=== PATIENT | female | born 1955 | race Caucasian/White ===

== ENCOUNTER 2017-06-14 18:37 | Emergency (ER) | payer OTHER ==
[~2017-06-14] VITALS: Ht 162.6 cm; Wt 63.5 kg
[~2017-06-14 18:37] MED LIST: ALEN35 PO; BUDE32NIS; CYCL10 PO; ESCI10; FEXO180; FORTEO; GABA300 PO; HYDACE5 PO; K-Dur20 MEQ PO; Lovenox100 MG/1 M SQ; NAPR500 PO; NORT25 PO; Norco 10-325 T1 EACH PO; OXYACE5C; OXYACE5T PO; PROM25 PO; Percocet 5-3251 EACH PO; RISE35; TIZA4; TIZA4 PO; TRAM50; TREXAMET PO; TREXIMET 10-601 EACH
[2017-09-02] MEDS ORDERED: NAPR500 (13:48)
[2017-09-02] MEDS ORDERED: XARELTO10 MG (13:49)
== END 2017-06-14 20:12 | disposition home or self-care (01) ==
LOC: ER 18:37
DX: Z20.3 Contact with and (suspected) exposure to rabies (principal); Z23 Encounter for immunization; Z88.8 Allergy status to other drugs, medicaments and biological substances; I10 Essential (primary) hypertension
CPT/HCPCS: 90471; 99283

== ENCOUNTER 2017-06-17 00:19 | Day surgery (SDC) | payer OTHER ==
[2017-06-17] MEDS ORDERED: PROLIA60 MG/1 ML SC (14:24)
[2017-06-17] MEDS ORDERED: OXYC1TAB11 PO (14:25)
[2017-06-17] MEDS ORDERED: Zanaflex4 M1 PO (14:25)
[2017-09-02] MEDS ORDERED: NAPR500 (13:48)
[2017-09-02] MEDS ORDERED: XARELTO10 MG (13:49)
== END 2017-06-17 13:58 | disposition home or self-care (01) ==
LOC: ATC 00:19
DX: Z23 Encounter for immunization (principal); Z20.3 Contact with and (suspected) exposure to rabies; S61.252A Open bite of right middle finger without damage to nail, initial encounter; W55.81XA Bitten by other mammals, initial encounter
CPT/HCPCS: 90471

== ENCOUNTER 2017-09-09 08:09 | Day surgery (SDC) | payer OTHER ==
[~2017-09-09] VITALS: Ht 160 cm; Wt 67.1 kg
[~2017-09-09 08:09] MED LIST changes: +NAPR500; +OXYC1TAB11 PO; +PROLIA60 MG/1 ML SC; +XARELTO10 MG; +Zanaflex4 M1 PO
== END 2017-09-09 10:05 | disposition home or self-care (01) ==
LOC: ORSCSDS 08:09
PROVIDERS: Internal Medicine Gastroenterology
PROC: 0DBG8ZX Excision of Left Large Intestine, Via Natural or Artificial Opening Endoscopic, Diagnostic (ICD-10-PCS; principal; 2017-09-09 09:30)
DX: Z12.11 Encounter for screening for malignant neoplasm of colon (principal); K57.30 Diverticulosis of large intestine without perforation or abscess without bleeding; K64.8 Other hemorrhoids; Z86.010 Personal history of colon polyps; Z83.71 Family history of colonic polyps; J45.909 Unspecified asthma, uncomplicated; Z86.718 Personal history of other venous thrombosis and embolism; Z79.01 Long term (current) use of anticoagulants; Z79.899 Other long term (current) drug therapy
CPT/HCPCS: 88305; J7120

== ENCOUNTER 2018-09-13 16:39 | Observation (INO) | payer OTHER ==
[~2018-09-13] VITALS: Ht 160 cm; Wt 65.8 kg
[~2018-09-13 16:39] MED LIST changes: -OXYC1TAB11 PO
[2018-09-13 17:07] LABS: BASOPHILS ABSOLUTE AUTO 0.03 K/mm3 (0.00-0.23); BASOPHILS PERCENT AUTO 0 % (0-2); EOSINOPHILS PERCENT AUTO 1 % (0-6); Hematocrit 41.9 % (33.0-51.0); IMMATURE GRAN ABSOLUTE AUTO 0.02 K/mm3 (0.00-0.10); IMMATURE GRAN PERCENT AUTO 0 % (0-1); LYMPHOCYTES ABSOLUTE AUTO 2.13 K/mm3 (0.84-5.20); LYMPHOCYTES PERCENT AUTO 20 % (21-46); MONOCYTES ABSOLUTE AUTO 0.66 K/mm3 (0.16-1.47); MONOCYTES PERCENT AUTO 6 % (4-13); Mean Corpuscular HGB 30.6 pg (26.0-34.0); Mean Corpuscular HGB Conc 33.4 g/dL (31.5-36.5); Mean Corpuscular Volume 92 fL (80-100); Mean Platelet Volume 11.1 fL (9.1-12.4); NEUTROPHILS ABSOLUTE AUTO 7.68 K/mm3 (1.96-9.15); NEUTROPHILS PERCENT AUTO 72 % (41-73); Platelet Count 261 K/mm3 (150-400); RDW Coefficient Variation 12.4 % (11.7-14.2); RDW Standard Deviation 41.4 fL (35.1-46.3); Red Blood Cell Count 4.57 M/mm3 (3.80-5.20); White Blood Cell Count 10.62 K/mm3 (4.00-11.30)
[2018-09-13 17:32] LABS: Alanine Aminotransfer (ALT/SGP 32 U/L (12-78); Albumin, Blood 3.6 g/dL (3.4-5.0); Albumin/Globulin Ratio 0.9 (0.8-1.8); Alk Phos 175 U/L (50-136); Anion Gap 9 mmol/L (6-16); Aspartate Aminotrans (AST/SGOT 22 U/L (12-37); Bilirubin, Total 0.7 mg/dL (0.1-1.0); Blood Urea Nitrogen 21 mg/dL (8-24); Bun/Creatinine Ratio 30.4 (12.0-20.0); CO2, Blood 23 mmol/L (21-32); Calcium, Blood 9.1 mg/dL (8.5-10.1); Chloride, Blood 107 mmol/L (98-108); Creatinine, Blood 0.69 mg/dL (0.40-1.00); Globulin, Blood 3.8 g/dL (2.2-4.0); Glomerular Filtration Rate >60 (60-); Glucose, Blood 110 mg/dL (70-99); Potassium, Blood 3.8 mmol/L (3.5-5.5); Sodium, Blood 139 mmol/L (136-145); Total Protein, Blood 7.4 g/dL (6.4-8.2)
[2018-09-13] MEDS ORDERED: LOSA50 PO (17:46)
[2018-09-13] MEDS ORDERED: Norvasc2.5 MG PO (17:46)
[2018-09-13 18:28] LABS: Source, Urine Clean Catch
[2018-09-13 18:37] LABS: Bilirubin, Urine Neg (Neg); Blood, Urine 1+ (Neg); Glucose Qualitative, Urine Neg (Neg); Ketones, Urine 2+ (Neg); Leukocyte Esterase, Urine Neg (Neg); Nitrite, Urine Neg (Neg); Protein, Urine Neg (Neg); Specific Gravity, Urine 1.025 (1.003-1.022); Urobilinogen, Urine NORM (Normal)
[2018-09-13 18:38] LABS: Appearance, Urine Clear (Clear); Color, Urine Yellow (P-Yellow)
[2018-09-13 18:49] LABS: Bacteria Few /hpf; Red Blood Cells, Urine 0-2 /hpf (0-2); Squamous Epithelial Cells Not Seen /hpf (Few); Uric Acid Crystals Many /hpf; White Blood Cells, Urine 0-2 /hpf (0-5)
[2018-09-13 19:49] LABS: Adenovirus F 40/41 Not Detected (NOT DETECT); Astrovirus Not Detected (NOT DETECT); Campylobacter Sp Not Detected (NOT DETECT); Cryptosporidium Not Detected (NOT DETECT); Cyclospora Cayetanensis Not Detected (NOT DETECT); E. Coli O157 Not Detected (NOT DETECT); Entamoeba Histolytica Not Detected (NOT DETECT); Enteroaggregative E. coli-EAEC Not Detected (NOT DETECT); Enteropathogenic E. coli-EPEC Not Detected (NOT DETECT); Enterotoxigenic E. coli-ETEC Not Detected (NOT DETECT); Giardia Lamblia Not Detected (NOT DETECT); Norovirus GI/GII Not Detected (NOT DETECT); Plesiomonas Shigelloides Not Detected (NOT DETECT); Rotavirus A Not Detected (NOT DETECT); Salmonella Sp Not Detected (NOT DETECT); Sapovirus Not Detected (NOT DETECT); Shiga Toxin-prod E. coli-STEC Not Detected (NOT DETECT); Shigella/Enteroin E. coli-EIEC Not Detected (NOT DETECT); Vibrio Cholerae Not Detected (NOT DETECT); Vibrio Sp Not Detected (NOT DETECT); Yersinia Enterocolitica Not Detected (NOT DETECT)
[2018-09-13] MEDS ORDERED: XARELTO10 MG PO (20:17)
[2018-09-13] MEDS ORDERED: Treximet 85-501 EACH (22:17)
--- NOTE | 2018-09-14 07:27 | NUR ---
PT NEW ADMIT THIS SHIFT FOR C-DIFF. PT VSS T/O NIGHT. PAIN MGD PER EMAR W/REP RELIEF. PT DOES REP MILD NAUSEA, DECLINED NEED FOR NAUSEA MEDS. PT HAD 2 BM, BLOODY DIARRHEA. PT REP LESS DIZZINESS THIS AM. PT UP INDEP IN RROM, IS USING CALL LIGHT FOR ASSISTANCE, REP GIVEN TO DAY RN.
[2018-09-14] MEDS ORDERED: Florastor250 MG PO (12:01)
[2018-09-14] MEDS ORDERED: ONDA4ODT MM (12:02)
[2018-09-14] MEDS ORDERED: Anti-Diarrheal2 MG PO (12:02)
--- NOTE | 2018-09-14 12:33 | NUR ---
DISCHARGE PT SET UP F/U APPOINTMENT WITH DR SUERO FOR TODAY AT 1. UNDERSTANDS REASONS TO RETURN TO ED. SCRIPTS CALLED TO PHARMACY OF CHOICE, [facility].
== END 2018-09-14 12:14 | disposition home or self-care (01) ==
LOC: ER 16:39 → SURS 16:40 → ER 21:03 → SURS 21:03
PROVIDERS: Emergency Medicine; ADMIT Family Medicine
DX: A04.72 Enterocolitis due to Clostridium difficile, not specified as recurrent (principal); I12.9 Hypertensive chronic kidney disease with stage 1 through stage 4 chronic kidney disease, or unspecified chronic kidney disease; N18.3 Chronic kidney disease, stage 3 (moderate); Z88.8 Allergy status to other drugs, medicaments and biological substances; Z79.899 Other long term (current) drug therapy
CPT/HCPCS: 36415; 46600; 74176; 80053; 81001; 85025; 86850; 86900; 86901; 87324; 87507; 93005; 93010; 96361-59; 96374-59; 96376-59; 99285-25; J1170; J2405; J3010; J7030

== ENCOUNTER 2018-09-15 02:08 | Emergency (ER) | payer OTHER ==
[~2018-09-15] VITALS: Ht 160 cm; Wt 65.8 kg
[~2018-09-15 02:08] MED LIST changes: +Anti-Diarrheal2 MG PO; +Florastor250 MG PO; +LOSA50 PO; +Norvasc2.5 MG PO; +ONDA4ODT MM; +Treximet 85-501 EACH; +XARELTO10 MG PO
[2018-09-15 02:46] LABS: BASOPHILS ABSOLUTE AUTO 0.03 K/mm3 (0.00-0.23); BASOPHILS PERCENT AUTO 0 % (0-2); EOSINOPHILS ABSOLUTE AUTO 0.21 K/mm3 (0.00-0.68); EOSINOPHILS PERCENT AUTO 3 % (0-6); Hematocrit 34.8 % (33.0-51.0); Hemoglobin 11.5 g/dL (11.5-16.0); IMMATURE GRAN ABSOLUTE AUTO 0.03 K/mm3 (0.00-0.10); IMMATURE GRAN PERCENT AUTO 0 % (0-1); LYMPHOCYTES ABSOLUTE AUTO 1.99 K/mm3 (0.84-5.20); LYMPHOCYTES PERCENT AUTO 25 % (21-46); MONOCYTES PERCENT AUTO 8 % (4-13); Mean Corpuscular Volume 94 fL (80-100); NEUTROPHILS ABSOLUTE AUTO 5.09 K/mm3 (1.96-9.15); NEUTROPHILS PERCENT AUTO 64 % (41-73); Platelet Count 209 K/mm3 (150-400); RDW Coefficient Variation 12.3 % (11.7-14.2); RDW Standard Deviation 42.1 fL (35.1-46.3); Red Blood Cell Count 3.71 M/mm3 (3.80-5.20); White Blood Cell Count 7.95 K/mm3 (4.00-11.30)
[2018-09-15 03:04] LABS: Alanine Aminotransfer (ALT/SGP 24 U/L (12-78); Albumin, Blood 2.9 g/dL (3.4-5.0); Alk Phos 125 U/L (50-136); Anion Gap 6 mmol/L (6-16); Aspartate Aminotrans (AST/SGOT 16 U/L (12-37); Bilirubin, Total 0.3 mg/dL (0.1-1.0); Blood Urea Nitrogen 13 mg/dL (8-24); Bun/Creatinine Ratio 16.5 (12.0-20.0); CO2, Blood 25 mmol/L (21-32); Chloride, Blood 108 mmol/L (98-108); Creatinine, Blood 0.79 mg/dL (0.40-1.00); Globulin, Blood 2.8 g/dL (2.2-4.0); Glomerular Filtration Rate >60 (60-); Glucose, Blood 123 mg/dL (70-99); Potassium, Blood 3.7 mmol/L (3.5-5.5); Sodium, Blood 139 mmol/L (136-145); Total Protein, Blood 5.7 g/dL (6.4-8.2); Troponin I <0.015 ng/mL (0.000-0.040)
== END 2018-09-15 03:35 | disposition home or self-care (01) ==
LOC: ER 02:08
PROVIDERS: Emergency Medicine
DX: T50.901A Poisoning by unspecified drugs, medicaments and biological substances, accidental (unintentional), initial encounter (principal); I10 Essential (primary) hypertension; Z88.8 Allergy status to other drugs, medicaments and biological substances; Z79.899 Other long term (current) drug therapy
CPT/HCPCS: 36415; 80053; 84484; 85025; 93005; 93010; 99284-25; J7030

== ENCOUNTER → 2019-01-07 | Outpatient (CLI) | payer OTHER ==
[2019-01-12 13:07] LABS: HPV 16 Negative (Negative); HPV 18 Negative (Negative); HPV OTHER HR TYPES Negative (Negative)
== END | disposition home or self-care (01) ==
LOC: LAB 13:37 → LAB SHORT 13:37
PROVIDERS: Obstetrics & Gynecology Gynecology
DX: Z12.4 Encounter for screening for malignant neoplasm of cervix (principal)
CPT/HCPCS: 87624; G0123

== ENCOUNTER 2020-03-02 16:19 | Emergency (ER) | payer OTHER ==
[~2020-03-02] VITALS: Ht 162.6 cm; Wt 65.8 kg
[2020-03-02] MEDS ORDERED: XARELTO20 MG (16:42)
[2020-03-02] MEDS ORDERED: LORA.5 (16:42)
[2020-03-02 18:24] LABS: BASOPHILS ABSOLUTE AUTO 0.03 K/mm3 (0.00-0.23); BASOPHILS PERCENT AUTO 0 % (0-2); EOSINOPHILS PERCENT AUTO 0 % (0-6); Hematocrit 45.1 % (33.0-51.0); Hemoglobin 15.1 g/dL (11.5-16.0); IMMATURE GRAN ABSOLUTE AUTO 0.06 K/mm3 (0.00-0.10); IMMATURE GRAN PERCENT AUTO 0 % (0-1); LYMPHOCYTES ABSOLUTE AUTO 0.76 K/mm3 (0.84-5.20); LYMPHOCYTES PERCENT AUTO 5 % (21-46); MONOCYTES ABSOLUTE AUTO 0.22 K/mm3 (0.16-1.47); MONOCYTES PERCENT AUTO 1 % (4-13); Mean Corpuscular HGB 30.8 pg (26.0-34.0); Mean Corpuscular HGB Conc 33.5 g/dL (31.5-36.5); Mean Corpuscular Volume 92 fL (80-100); Mean Platelet Volume 10.6 fL (9.1-12.4); NEUTROPHILS ABSOLUTE AUTO 15.08 K/mm3 (1.96-9.15); NEUTROPHILS PERCENT AUTO 93 % (41-73); Platelet Count 289 K/mm3 (150-400); RDW Coefficient Variation 12.3 % (11.7-14.2); RDW Standard Deviation 42.3 fL (35.1-46.3); White Blood Cell Count 16.15 K/mm3 (4.00-11.30)
[2020-03-02 18:39] LABS: International Normalized Ratio 1.07; Prothrombin Time Results 11.4 Sec (9.7-11.5)
[2020-03-02 18:41] LABS: Alanine Aminotransfer (ALT/SGP 31 U/L (12-78); Albumin, Blood 4.4 g/dL (3.4-5.0); Albumin/Globulin Ratio 1.2 (0.8-1.8); Alk Phos 105 U/L (50-136); Anion Gap 9 mmol/L (6-16); Aspartate Aminotrans (AST/SGOT 20 U/L (12-37); Bilirubin, Total 0.5 mg/dL (0.1-1.0); Blood Urea Nitrogen 28 mg/dL (8-24); Bun/Creatinine Ratio 36.4 (12.0-20.0); CO2, Blood 22 mmol/L (21-32); Calcium, Blood 10.1 mg/dL (8.5-10.1); Chloride, Blood 112 mmol/L (98-108); Creatinine, Blood 0.77 mg/dL (0.40-1.00); Globulin, Blood 3.8 g/dL (2.2-4.0); Glomerular Filtration Rate >60 (60-); Glucose, Blood 130 mg/dL (70-99); Sodium, Blood 143 mmol/L (136-145); Total Protein, Blood 8.2 g/dL (6.4-8.2)
== END 2020-03-02 21:51 | disposition home or self-care (01) ==
LOC: ER 16:19
PROVIDERS: Emergency Medicine
DX: M25.462 Effusion, left knee (principal); I12.9 Hypertensive chronic kidney disease with stage 1 through stage 4 chronic kidney disease, or unspecified chronic kidney disease; N18.9 Chronic kidney disease, unspecified; Z79.899 Other long term (current) drug therapy; Z79.01 Long term (current) use of anticoagulants; Z88.8 Allergy status to other drugs, medicaments and biological substances; Z86.718 Personal history of other venous thrombosis and embolism
CPT/HCPCS: 29505; 36415; 73701; 80053; 85025; 85610; 85730; 96374-59; 96375-59; 99284-25; A9270; J1170; J2405; J7030; Q9967

== ENCOUNTER → 2020-05-10 | Outpatient (CLI) | payer OTHER ==
[~2020-05-10] MED LIST changes: +LORA.5; +XARELTO20 MG
[2020-05-10 16:40] LABS: U Amphetamine Screen Not Detected; U Barbituate Screen Not Detected; U Benzodiazapine Screen Not Detected; U Buprenorphine Screen Not Detected; U Cannabinoids Screen Not Detected; U Cocaine Screen Not Detected; U Methadone Screen Not Detected; U Methamphetamine Screen Not Detected; U Opiates Screen Not Detected; U Oxycodone Screen Not Detected; U Phencyclidine Screen Not Detected; U Propoxyphene Screen Not Detected
== END | disposition home or self-care (01) ==
LOC: LAB SHORT 10:25
PROVIDERS: Family Medicine
DX: Z51.81 Encounter for therapeutic drug level monitoring (principal); Z79.891 Long term (current) use of opiate analgesic

== ENCOUNTER → 2020-08-07 | Outpatient (CLI) | payer OTHER ==
[2020-08-07 20:46] LABS: U Amphetamine Screen Not Detected; U Barbituate Screen Not Detected; U Benzodiazapine Screen DETECTED; U Buprenorphine Screen Not Detected; U Cannabinoids Screen Not Detected; U Cocaine Screen Not Detected; U Methadone Screen Not Detected; U Methamphetamine Screen Not Detected; U Opiates Screen Not Detected; U Oxycodone Screen Not Detected; U Phencyclidine Screen Not Detected; U Propoxyphene Screen Not Detected
== END | disposition home or self-care (01) ==
LOC: LAB SHORT 16:40 → LAB 16:40
PROVIDERS: Family Medicine
DX: Z51.81 Encounter for therapeutic drug level monitoring (principal); Z79.891 Long term (current) use of opiate analgesic

== ENCOUNTER 2020-09-17 10:56 | Day surgery (SDC) | payer MEDICARE, OTHER ==
[~2020-09-17] VITALS: Ht 160 cm; Wt 65.8 kg
--- NOTE | 2020-09-17 11:11 | NUR ---
09/17/20 Conchis Garcia 1 TRY RIGHT HAND VALVE
== END 2020-09-17 11:58 | disposition home or self-care (01) ==
LOC: ORSCSDS 10:56
PROVIDERS: Internal Medicine Gastroenterology
PROC: 0DB58ZX Excision of Esophagus, Via Natural or Artificial Opening Endoscopic, Diagnostic (ICD-10-PCS; principal; 2020-09-17 12:15)
PROC: 0D758ZZ Dilation of Esophagus, Via Natural or Artificial Opening Endoscopic (ICD-10-PCS; principal; 2020-09-17 12:15)
DX: R13.10 Dysphagia, unspecified (principal); Z86.718 Personal history of other venous thrombosis and embolism; D68.51 Activated protein C resistance; M79.7 Fibromyalgia; Z79.01 Long term (current) use of anticoagulants; Z79.899 Other long term (current) drug therapy; K44.9 Diaphragmatic hernia without obstruction or gangrene; K22.2 Esophageal obstruction
CPT/HCPCS: 88305; J2704; J7120

== ENCOUNTER 2021-01-02 17:31 | Emergency (ER) | payer MEDICARE, OTHER ==
[~2021-01-02] VITALS: Ht 162.6 cm; Wt 65.8 kg
[2021-01-02 23:55] LABS: Chloride (POC) 101 mmol/L (98-108); Creatinine (POC) 0.7 mg/dL (0.6-1.0); Glucose (ISTAT POC) 79 mg/dL (70-99); Potassium (POC) 3.5 mmol/L (3.5-5.5); Sodium (POC) 135 mmol/L (135-148); Total CO2 (POC) 20 mmol/L (21-32)
[2021-01-03] MEDS ORDERED: PRED10 PO (01:21)
[2021-01-03] MEDS ORDERED: ALBU90OI INH (01:21)
== END 2021-01-03 01:50 | disposition home or self-care (01) ==
LOC: ER 17:31
PROVIDERS: Emergency Medicine
DX: U07.1 COVID-19 (principal); J12.82 Pneumonia due to coronavirus disease 2019; I12.9 Hypertensive chronic kidney disease with stage 1 through stage 4 chronic kidney disease, or unspecified chronic kidney disease; N18.9 Chronic kidney disease, unspecified; D68.51 Activated protein C resistance; Z86.718 Personal history of other venous thrombosis and embolism; Z79.899 Other long term (current) drug therapy; Z79.01 Long term (current) use of anticoagulants; Z88.8 Allergy status to other drugs, medicaments and biological substances
CPT/HCPCS: 36415; 71045; 71260; 80047; 85014; 94640; 99284-25; A9270; J7512; Q9967

== ENCOUNTER 2021-05-21 08:59 | Day surgery (SDC) | payer MEDICARE, OTHER ==
[~2021-05-21] VITALS: Ht 160 cm; Wt 66.5 kg
[~2021-05-21 08:59] MED LIST changes: +ALBU90OI INH; +PRED10 PO
[2021-05-21] MEDS ORDERED: Ativan1 MG PO (09:43)
--- NOTE | 2021-05-21 11:17 | NUR ---
05/21/[address] IN ROOM TO PERFORM NERVE BLOCK, ADMINISTERED VERSED. TIME OUT PERFORMED. CONTINUOUS PULSE OX IN PLACE. PT TOLERATED PROCEDURE WELL.
== END 2021-05-21 13:38 | disposition home or self-care (01) ==
LOC: ORSCSDS 08:59
PROVIDERS: Orthopaedic Surgery
PROC: 0LM14ZZ Reattachment of Right Shoulder Tendon, Percutaneous Endoscopic Approach (ICD-10-PCS; principal; 2021-05-21 10:30)
PROC: 0RNJ4ZZ Release Right Shoulder Joint, Percutaneous Endoscopic Approach (ICD-10-PCS; principal; 2021-05-21 10:30)
DX: M75.121 Complete rotator cuff tear or rupture of right shoulder, not specified as traumatic (principal); M75.21 Bicipital tendinitis, right shoulder; M75.41 Impingement syndrome of right shoulder; M19.011 Primary osteoarthritis, right shoulder; I10 Essential (primary) hypertension; F41.8 Other specified anxiety disorders; M79.7 Fibromyalgia; Z79.899 Other long term (current) drug therapy
CPT/HCPCS: A9270; C1713; J0171; J0690; J1100; J1885; J2250; J2405; J2704; J3010; J7120

== ENCOUNTER → 2021-10-18 | Outpatient (CLI) | payer MEDICARE, OTHER ==
[~2021-10-18] MED LIST changes: +Ativan1 MG PO
[2021-10-20 12:00] LABS: C DIFFICILE DNA POSITIVE (Negative)
== END | disposition home or self-care (01) ==
LOC: LAB SHORT 07:30
PROVIDERS: Chiropractor
DX: R10.9 Unspecified abdominal pain (principal)
CPT/HCPCS: 87324; 87493

== ENCOUNTER 2021-11-04 11:39 | Emergency (ER) | payer MEDICARE, OTHER ==
[~2021-11-04] VITALS: Ht 160 cm; Wt 65.8 kg
[2021-11-04 12:45] LABS: BASOPHILS ABSOLUTE AUTO 0.03 K/mm3 (0.00-0.23); BASOPHILS PERCENT AUTO 0 % (0-2); EOSINOPHILS ABSOLUTE AUTO 0.06 K/mm3 (0.00-0.68); EOSINOPHILS PERCENT AUTO 1 % (0-6); Hematocrit 44.2 % (33.0-51.0); Hemoglobin 14.9 g/dL (11.5-16.0); IMMATURE GRAN ABSOLUTE AUTO 0.04 K/mm3 (0.00-0.10); IMMATURE GRAN PERCENT AUTO 0 % (0-1); LYMPHOCYTES ABSOLUTE AUTO 1.87 K/mm3 (0.84-5.20); LYMPHOCYTES PERCENT AUTO 20 % (21-46); MONOCYTES ABSOLUTE AUTO 0.73 K/mm3 (0.16-1.47); MONOCYTES PERCENT AUTO 8 % (4-13); Mean Corpuscular HGB 30.3 pg (26.0-34.0); Mean Corpuscular HGB Conc 33.7 g/dL (31.5-36.5); Mean Corpuscular Volume 90 fL (80-100); Mean Platelet Volume 10.7 fL (9.1-12.4); NEUTROPHILS ABSOLUTE AUTO 6.67 K/mm3 (1.96-9.15); NEUTROPHILS PERCENT AUTO 71 % (41-73); Platelet Count 234 K/mm3 (150-400); RDW Coefficient Variation 12.4 % (11.7-14.2); RDW Standard Deviation 41.1 fL (35.1-46.3); Red Blood Cell Count 4.92 M/mm3 (3.80-5.20)
[2021-11-04 13:09] LABS: Albumin, Blood 3.5 g/dL (3.4-5.0); Albumin/Globulin Ratio 0.9 (0.8-1.8); Bilirubin, Total 0.8 mg/dL (0.1-1.0); Bun/Creatinine Ratio 19.1 (12.0-20.0); Creatinine, Blood 0.84 mg/dL (0.40-1.00); Globulin, Blood 3.9 g/dL (2.2-4.0); Potassium, Blood 3.9 mmol/L (3.5-5.5); Total Protein, Blood 7.4 g/dL (6.4-8.2)
[2021-11-04] MEDS ORDERED: Vancocin HCl125 MG (18:14)
[2021-11-04 18:34] LABS: Source, Urine Clean Catch
[2021-11-04 18:41] LABS: Bilirubin, Urine Neg (Neg); Blood, Urine 1+ (Neg); Color, Urine Yellow (P-Yellow); Glucose Qualitative, Urine Neg (Neg); Ketones, Urine 3+ (Neg); Leukocyte Esterase, Urine Neg (Neg); Nitrite, Urine Neg (Neg); Protein, Urine 1+ (Neg); Specific Gravity, Urine 1.025 (1.003-1.022); Urobilinogen, Urine NORM (Normal)
[2021-11-04 18:54] LABS: Appearance, Urine Hazy (Clear)
[2021-11-04 18:55] LABS: Bacteria Mod /hpf; Hyaline Casts 0-2 /lpf (0-2); Mucus Mod (0-Heavy); Red Blood Cells, Urine 0-2 /hpf (0-2); Squamous Epithelial Cells Few /hpf (Few); White Blood Cells, Urine 0-2 /hpf (0-5)
[2021-11-04] MEDS ORDERED: VANCOCIN HCL250 MG PO (20:38)
[2021-11-04] MEDS ORDERED: ONDA4ODT MM (20:38)
[2021-11-04] MEDS ORDERED: FLAGYL500 MG PO (20:38)
== END 2021-11-04 22:14 | disposition home or self-care (01) ==
LOC: ER 11:39
PROVIDERS: Physician Assistant
DX: A04.72 Enterocolitis due to Clostridium difficile, not specified as recurrent (principal); Z88.8 Allergy status to other drugs, medicaments and biological substances; Z88.3 Allergy status to other anti-infective agents; I12.9 Hypertensive chronic kidney disease with stage 1 through stage 4 chronic kidney disease, or unspecified chronic kidney disease; N18.9 Chronic kidney disease, unspecified
CPT/HCPCS: 36415; 80053; 81001; 83690; 85025; A9270; J2405; J2765; J7030; J7120

== ENCOUNTER 2022-04-23 05:20 | Emergency (ER) | payer MEDICARE, OTHER ==
[~2022-04-23] VITALS: Ht 160 cm; Wt 55.8 kg
[~2022-04-23 05:20] MED LIST changes: +FLAGYL500 MG PO; +VANCOCIN HCL250 MG PO; +Vancocin HCl125 MG
== END 2022-04-23 07:50 | disposition home or self-care (01) ==
LOC: ER 05:20
DX: S61.252A Open bite of right middle finger without damage to nail, initial encounter (principal); W55.51XA Bitten by raccoon, initial encounter; I12.9 Hypertensive chronic kidney disease with stage 1 through stage 4 chronic kidney disease, or unspecified chronic kidney disease; N18.9 Chronic kidney disease, unspecified; Z88.8 Allergy status to other drugs, medicaments and biological substances; Z79.899 Other long term (current) drug therapy; Z23 Encounter for immunization

== ENCOUNTER 2022-05-21 08:29 | Day surgery (SDC) | payer MEDICARE, OTHER ==
[~2022-05-21] VITALS: Ht 160 cm; Wt 55.8 kg
[2022-05-21] MEDS ORDERED: ASPI81CH (08:50)
[2022-05-21] MEDS ORDERED: XARELTO20 MG ×2 (08:50→08:51)
[2022-05-21] MEDS ORDERED: PROLIA60 MG/1 ML (08:51)
[2022-05-21] MEDS ORDERED: VITAMIN D31000 UNI1 (08:51)
[2022-05-21] MEDS ORDERED: SUMA25 (08:52)
[2022-05-21] MEDS ORDERED: SUMA5NI (08:52)
[2022-05-21] MEDS ORDERED: VALA500 (08:52)
== END 2022-05-21 10:48 | disposition home or self-care (01) ==
LOC: ORSCSDS 08:29
PROVIDERS: Internal Medicine Gastroenterology
PROC: 0DJD8ZZ Inspection of Lower Intestinal Tract, Via Natural or Artificial Opening Endoscopic (ICD-10-PCS; principal; 2022-05-21 09:45)
DX: R63.4 Abnormal weight loss (principal); Z87.19 Personal history of other diseases of the digestive system; K59.00 Constipation, unspecified; Z86.010 Personal history of colon polyps; K57.30 Diverticulosis of large intestine without perforation or abscess without bleeding; I82.409 Acute embolism and thrombosis of unspecified deep veins of unspecified lower extremity; M79.7 Fibromyalgia; Z80.0 Family history of malignant neoplasm of digestive organs; Z83.71 Family history of colonic polyps; Z79.899 Other long term (current) drug therapy
CPT/HCPCS: J2704; J7120

== ENCOUNTER 2022-08-14 12:02 | Inpatient (IN) | payer MEDICARE, OTHER ==
[~2022-08-14] VITALS: Ht 160 cm; Wt 56.7 kg
[~2022-08-14 12:02] MED LIST changes: +ASPI81CH; +PROLIA60 MG/1 ML; +SUMA25; +SUMA5NI; +VALA500; +VITAMIN D31000 UNI1; +XARELTO10 M5 PO; -Zanaflex4 M1 PO
[2022-08-14 12:40] LABS: BASOPHILS ABSOLUTE AUTO 0.06 K/mm3 (0.00-0.23); BASOPHILS PERCENT AUTO 1 % (0-2); EOSINOPHILS ABSOLUTE AUTO 0.35 K/mm3 (0.00-0.68); EOSINOPHILS PERCENT AUTO 5 % (0-6); Hematocrit 43.7 % (33.0-51.0); Hemoglobin 14.6 g/dL (11.5-16.0); IMMATURE GRAN ABSOLUTE AUTO 0.02 K/mm3 (0.00-0.10); IMMATURE GRAN PERCENT AUTO 0 % (0-1); LYMPHOCYTES ABSOLUTE AUTO 2.84 K/mm3 (0.84-5.20); LYMPHOCYTES PERCENT AUTO 38 % (21-46); MONOCYTES ABSOLUTE AUTO 0.32 K/mm3 (0.16-1.47); MONOCYTES PERCENT AUTO 4 % (4-13); Mean Corpuscular HGB 31.1 pg (26.0-34.0); Mean Corpuscular HGB Conc 33.4 g/dL (31.5-36.5); Mean Corpuscular Volume 93 fL (80-100); Mean Platelet Volume 11.2 fL (9.1-12.4); NEUTROPHILS ABSOLUTE AUTO 3.82 K/mm3 (1.96-9.15); NEUTROPHILS PERCENT AUTO 52 % (41-73); Platelet Count 221 K/mm3 (150-400); RDW Coefficient Variation 12.5 % (11.7-14.2); RDW Standard Deviation 42.8 fL (35.1-46.3); White Blood Cell Count 7.41 K/mm3 (4.00-11.30)
[2022-08-14 13:01] LABS: C-REACTIVE PROTEIN, EXT RANGE <0.290 mg/dL (0.000-0.300)
[2022-08-14 13:15] LABS: Alanine Aminotransfer (ALT/SGP 41 U/L (12-78); Albumin, Blood 3.8 g/dL (3.4-5.0); Albumin/Globulin Ratio 1.1 (0.8-1.8); Alk Phos 85 U/L (50-136); Anion Gap Unable to Calculate mmol/L (6-16); Aspartate Aminotrans (AST/SGOT 21 U/L (12-37); Bilirubin, Total 0.3 mg/dL (0.1-1.0); Blood Urea Nitrogen 29 mg/dL (8-24); Bun/Creatinine Ratio 42.6 (12.0-20.0); CO2, Blood 27 mmol/L (21-32); Chloride, Blood 112 mmol/L (98-108); Creatinine, Blood 0.68 mg/dL (0.40-1.00); Globulin, Blood 3.4 g/dL (2.2-4.0); Glomerular Filtration Rate 96 (60-); Glucose, Blood 132 mg/dL (70-99); Potassium, Blood 4.3 mmol/L (3.5-5.5); Sodium, Blood 138 mmol/L (136-145); Total Protein, Blood 7.2 g/dL (6.4-8.2)
--- NOTE | 2022-08-14 22:48 | NUR ---
Resident contacted regarding pt BP going from SBP 170's to 70-80 with a MAP in the 50's. Patient is asymptomatic. 1L NS bolus initiated and tele ordered.
--- NOTE | 2022-08-14 23:58 | NUR ---
Contacted resident regarding low BP despite 1L bolus, MAP in high 50's low 60's. Resident states will put in orders.
--- NOTE | 2022-08-15 05:50 | NUR ---
Assumed care of patient at 2055 as an ER admit. A/Ox4, pleasant, independent in room. Reports L eye pain, medicated per emar, reduced visual stimuli and eyepatch applied with good relief. Perrla. L eye redness noted. Field of vision in L equal to vision in R - just has a hard time keeping L eye open secondary to pain. This is unchanged t/o shift. Other neuro WNL. Maintains over 95% on RA. After 1L NS bolus, BP improved with MAP now in 70's. SR/SB on tele 40-60's. Denies CP/pressure. Strong +2 radial pulses b/l, and faint +1 tibial & pedal pulses b/l. Patient slept for about 4 hours this shift. Will report to dayshift [facility].
[2022-08-15 14:03] LABS: Rheumatoid Factor, Serum Negative (Negative)
--- NOTE | 2022-08-15 18:44 | NUR ---
END OF SHIFT NOTE. PT REPORTS THAT HER VISION HAS IMPROVED THROUGHOUT THE DAY. PT HAS HAD SOME COMPLAINTS OF HEADACHE AND EYE PAIN WHICH WAS TREATED WITH PRN PAIN MEDS. MULTIPLE VISITS FROM FAMILY TODAY. VITALS STABLE. BP WNL AFTER MED ADJUSTMENTS. PT IS INDEPENDENT IN THE ROOM. PT IS ABLE TO MAKE NEEDS KNOWN, CALL LIGHT IS WITHIN REACH.
[2022-08-16 04:09] LABS: BASOPHILS ABSOLUTE AUTO 0.02 K/mm3 (0.00-0.23); BASOPHILS PERCENT AUTO 0 % (0-2); EOSINOPHILS PERCENT AUTO 0 % (0-6); Hematocrit 38.7 % (33.0-51.0); Hemoglobin 13.3 g/dL (11.5-16.0); IMMATURE GRAN ABSOLUTE AUTO 0.08 K/mm3 (0.00-0.10); IMMATURE GRAN PERCENT AUTO 1 % (0-1); LYMPHOCYTES PERCENT AUTO 8 % (21-46); MONOCYTES ABSOLUTE AUTO 0.15 K/mm3 (0.16-1.47); MONOCYTES PERCENT AUTO 1 % (4-13); Mean Corpuscular HGB 31.5 pg (26.0-34.0); Mean Corpuscular HGB Conc 34.4 g/dL (31.5-36.5); Mean Corpuscular Volume 92 fL (80-100); Mean Platelet Volume 11.4 fL (9.1-12.4); NEUTROPHILS ABSOLUTE AUTO 11.83 K/mm3 (1.96-9.15); NEUTROPHILS PERCENT AUTO 90 % (41-73); Platelet Count 144 K/mm3 (150-400); RDW Coefficient Variation 12.6 % (11.7-14.2); Red Blood Cell Count 4.22 M/mm3 (3.80-5.20); White Blood Cell Count 13.18 K/mm3 (4.00-11.30)
[2022-08-16 04:24] LABS: Bun/Creatinine Ratio 40.1 (12.0-20.0); Calcium, Blood 8.2 mg/dL (8.5-10.1); Creatinine, Blood 0.57 mg/dL (0.40-1.00); Potassium, Blood 4.2 mmol/L (3.5-5.5)
--- NOTE | 2022-08-16 06:49 | NUR ---
SHIFT SUMMARY PT REMAINS A&O X4. VSS THROUGHOUT SHIFT; ALTHOUGH PT HAD A FEW SOFT BP - SBP IN 100'S AFTER ADMINISTRATION OF PM MEDICATION. SEE VITALS FOR BP. PT DENIES CP, PRESSURE, SOB. REPORTS MILD PAIN IN HER L EYE BUT IS "IMPROVING", WELL VISION IMPROVING SOME. PT REPORTS MIGRAINE DIOP. HOME MEDICATION, IMITREX ORDERED AND ADMINISTERED PER EMAR. PT WAS ABLE TO GET RELIEF AND SLEPT WELL THROUGHOUT THE SHIFT. PT REPOSITIONS AND USE BATHROOM INDEPENDENTLY. PT DENIES ANY CONCERNS OR PROBLEMS W/VOIDING. NO ACUTE CHANGES. CALL LIGHT IN REACH. WILL UPDATE ONCOMING RN
[2022-08-16 08:10] LABS: COMPLEMENT C3, SERUM 104 mg/dL (82-167)
--- NOTE | 2022-08-16 18:01 | NUR ---
END OF SHIFT PT MEDICAL NO TELE STATUS. A&O X4. INDEPENDENT IN RM. VSS. SPO2 > 92% ON RA. MONITOR SHOWING SR, HR 60s-70s. PT REPORTING IMPROVEMENT IN L EYE VISION, STATING "I CAN SEE THINGS TODAY THAT I COULDN'T SEE YESTERDAY." PT WEARING EYE PATCH MAJORITY OF DAY. PT DENYING PAIN/DISCOMFORT/NEEDS.
[2022-08-16 20:06] LABS: ANTI-DSDNA ANTIBODIES <1 IU/mL (0-9); RNP ANTIBODIES <0.2 AI (0.0-0.9); SJOGREN'S ANTI-SS-A <0.2 AI (0.0-0.9); SJOGREN'S ANTI-SS-B <0.2 AI (0.0-0.9); SMITH ANTIBODIES <0.2 AI (0.0-0.9)
[2022-08-17 04:34] LABS: BASOPHILS ABSOLUTE AUTO 0.01 K/mm3 (0.00-0.23); BASOPHILS PERCENT AUTO 0 % (0-2); EOSINOPHILS PERCENT AUTO 0 % (0-6); Hematocrit 35.9 % (33.0-51.0); Hemoglobin 12.2 g/dL (11.5-16.0); IMMATURE GRAN ABSOLUTE AUTO 0.07 K/mm3 (0.00-0.10); IMMATURE GRAN PERCENT AUTO 1 % (0-1); LYMPHOCYTES ABSOLUTE AUTO 0.94 K/mm3 (0.84-5.20); LYMPHOCYTES PERCENT AUTO 7 % (21-46); MONOCYTES ABSOLUTE AUTO 0.19 K/mm3 (0.16-1.47); MONOCYTES PERCENT AUTO 1 % (4-13); Mean Corpuscular HGB 31.4 pg (26.0-34.0); Mean Corpuscular Volume 92 fL (80-100); Mean Platelet Volume 11.8 fL (9.1-12.4); NEUTROPHILS ABSOLUTE AUTO 11.93 K/mm3 (1.96-9.15); NEUTROPHILS PERCENT AUTO 91 % (41-73); Platelet Count 178 K/mm3 (150-400); RDW Coefficient Variation 12.6 % (11.7-14.2); RDW Standard Deviation 42.9 fL (35.1-46.3); Red Blood Cell Count 3.89 M/mm3 (3.80-5.20); White Blood Cell Count 13.14 K/mm3 (4.00-11.30)
[2022-08-17 04:54] LABS: Bun/Creatinine Ratio 38.1 (12.0-20.0); Calcium, Blood 8.1 mg/dL (8.5-10.1); Creatinine, Blood 0.6 mg/dL (0.40-1.00); Potassium, Blood 4.2 mmol/L (3.5-5.5)
--- NOTE | 2022-08-17 06:06 | NUR ---
SHIFT SUMMARY PT A&Ox4, CALLS AND COMMUNICATES NEEDS APPROPRIATELY. BP STABLE, SINUS 60-70's, DENIES CP/PRESSURE. SpO2> 92% RA, DENIES SOB. PT WITH COMPLAINT OF LEFT EYE PAIN, STATES THAT IT IS IMPROVING, MEDICATED PER EMAR. PT IND IN ROOM, CONTINENT OF URINE AND BOWEL. PT RESTED COMFORTABLY THROUGHOUT SHIFT. NO OTHER EVENTS, WILL REPORT TO ON COMING RN.
--- NOTE | 2022-08-17 13:00 | NUR ---
ASSUMPTION OF CARE: PATIENT IS ALERT AND ORIENTED, PLEASANT, COOPERATIVE WITH CARE. PATIENT DOES ENDORSES IMPROVING LEFT VISION LOSS. ADDITIONALLY PATIENT HAS NOTICED WITH THE LARGE DOSES OF STEROIDS THAT SHE IS ABLE TO MOVE HER RIGHT SHOULDER HIGHER THAN SHE HAS BEEN ABLE TO IN THE PAST 2 YEARS. INDEPENDENT IN THE ROOM. PATIENT IS ON RA WITH NO CONCERNS DENIES CHEST PAIN PRESSURE SOB AT REST. TELE IN PLACE NORMOTENSIVE NO OTHER SIGNIFICANT ITEMS OF INFORMATION. PATIENT HAS NO CONCERNS THAT HAVE NOT BEEN ADRESSED, CURRENTLY ANTICOAGULATED. NO CONCERNS FROM THIS RN AT THIS TIME
--- NOTE | 2022-08-17 19:25 | NUR ---
END OF SHIFT: PLEASE SEE ASSUMPTION OF CARE, NO CONCERNS FROM THIS RN AT THIS TIME, NO ACUTE DISTRESS OF ANYKIND. IMPROVING OVERALL CONDITION.
[2022-08-18 03:46] LABS: BASOPHILS ABSOLUTE AUTO 0.01 K/mm3 (0.00-0.23); BASOPHILS PERCENT AUTO 0 % (0-2); EOSINOPHILS PERCENT AUTO 0 % (0-6); Hematocrit 35.4 % (33.0-51.0); Hemoglobin 12.1 g/dL (11.5-16.0); IMMATURE GRAN ABSOLUTE AUTO 0.09 K/mm3 (0.00-0.10); IMMATURE GRAN PERCENT AUTO 1 % (0-1); LYMPHOCYTES ABSOLUTE AUTO 0.75 K/mm3 (0.84-5.20); LYMPHOCYTES PERCENT AUTO 9 % (21-46); MONOCYTES ABSOLUTE AUTO 0.16 K/mm3 (0.16-1.47); MONOCYTES PERCENT AUTO 2 % (4-13); Mean Corpuscular HGB 31.3 pg (26.0-34.0); Mean Corpuscular HGB Conc 34.2 g/dL (31.5-36.5); Mean Corpuscular Volume 92 fL (80-100); Mean Platelet Volume 11.5 fL (9.1-12.4); NEUTROPHILS ABSOLUTE AUTO 7.58 K/mm3 (1.96-9.15); NEUTROPHILS PERCENT AUTO 88 % (41-73); Platelet Count 176 K/mm3 (150-400); RDW Coefficient Variation 12.6 % (11.7-14.2); RDW Standard Deviation 42.4 fL (35.1-46.3); Red Blood Cell Count 3.86 M/mm3 (3.80-5.20); White Blood Cell Count 8.59 K/mm3 (4.00-11.30)
[2022-08-18 04:12] LABS: Bun/Creatinine Ratio 43.5 (12.0-20.0); Calcium, Blood 7.8 mg/dL (8.5-10.1); Creatinine, Blood 0.67 mg/dL (0.40-1.00); Potassium, Blood 4.1 mmol/L (3.5-5.5)
--- NOTE | 2022-08-18 06:25 | NUR ---
SHIFT SUMMARY PT A&Ox4, CALLS AND COMMUNICATES NEEDS APPROPRIATELY. BP STABLE, SINUS 50-60's, DENIES CP/PRESSURE. SpO2> 92% RA, DENIES SOB. PT WITH COMPLAINT OF LEFT EYE PAIN, STATES THAT IT IS A LITTLE WORSE THAN YESTERDAY, MEDICATED PER EMAR. PT IND IN ROOM, CONTINENT OF URINE AND BOWEL. PT RESTED COMFORTABLY THROUGHOUT SHIFT. NO OTHER EVENTS, WILL REPORT TO ON COMING RN.
[2022-08-18 08:08] LABS: LYME TOTAL ANTIBODY CIA Negative (Negative)
[2022-08-18 10:08] LABS: ANGIOTENSIN-CONVERTING ENZYME 59 U/L (14-82)
[2022-08-18 10:31] LABS: RPR Non-reactive (Nonreactive)
--- NOTE | 2022-08-18 13:32 | NUR ---
TELEPHONE CALL FROM DR. BECKFORD RECEIVED. HE GAVE TELEPHONE ORDER PT IS TO HAVE 5 DAYS OF IV SOLUMEDROL BEFORE SHE CAN BE DISCHARGED HOME THEN CAN START PREDNISONE 1MG/KG PO X 10 DAYS THEN A 4 DAY TAPER OF PREDNISONE. PT IS TO FOLLOW-UP IN 2 WEEKS AT HIS OFFICE. DR. BECKFORD STATED HE DOES NOT NEED TO COME IN TO DO AN EVALUATION BEFORE SHE IS DISCHARGED. DR. PEREZ AND DR. DARDEN NOTIFIED OF ABOVE ORDERS FROM DR. BECKFORD.
--- NOTE | 2022-08-18 17:28 | NUR ---
SHIFT SUMMARY: PT A/O X 4, IN D IN ROOM ,PLEASANT AND COOPERATIVE WITH CARE. PT REPORTS EYESIGHT MUCH IMPROVED AND ABLE TO READ BOARD ACROSS ROOM. PT PAIN MANAGED WITH TYLENOL AT THIS TIME. PT TOLERATING SOLUMEDROL.
[2022-08-19 04:32] LABS: BASOPHILS ABSOLUTE AUTO 0.01 K/mm3 (0.00-0.23); BASOPHILS PERCENT AUTO 0 % (0-2); EOSINOPHILS PERCENT AUTO 0 % (0-6); Hematocrit 35.4 % (33.0-51.0); Hemoglobin 12.2 g/dL (11.5-16.0); IMMATURE GRAN PERCENT AUTO 1 % (0-1); LYMPHOCYTES ABSOLUTE AUTO 0.77 K/mm3 (0.84-5.20); LYMPHOCYTES PERCENT AUTO 10 % (21-46); MONOCYTES ABSOLUTE AUTO 0.19 K/mm3 (0.16-1.47); MONOCYTES PERCENT AUTO 3 % (4-13); Mean Corpuscular HGB 31.4 pg (26.0-34.0); Mean Corpuscular HGB Conc 34.5 g/dL (31.5-36.5); Mean Corpuscular Volume 91 fL (80-100); Mean Platelet Volume 11.4 fL (9.1-12.4); NEUTROPHILS ABSOLUTE AUTO 6.62 K/mm3 (1.96-9.15); NEUTROPHILS PERCENT AUTO 86 % (41-73); Platelet Count 164 K/mm3 (150-400); RDW Coefficient Variation 12.4 % (11.7-14.2); RDW Standard Deviation 41.3 fL (35.1-46.3); Red Blood Cell Count 3.88 M/mm3 (3.80-5.20); White Blood Cell Count 7.69 K/mm3 (4.00-11.30)
[2022-08-19 05:04] LABS: Bun/Creatinine Ratio 44.1 (12.0-20.0); Calcium, Blood 7.6 mg/dL (8.5-10.1); Creatinine, Blood 0.7 mg/dL (0.40-1.00); Potassium, Blood 4.1 mmol/L (3.5-5.5)
--- NOTE | 2022-08-19 06:26 | NUR ---
SHIFT SUMMARY PT A&Ox4, CALLS AND COMMUNICATES NEEDS APPROPRIATELY. BP STABLE, SINUS 50-60's, DENIES CP/PRESSURE. SpO2> 92% RA, DENIES SOB. PT WITH COMPLAINT OF LEFT EYE PAIN, STATES THAT IT IS ABOUT THE SAME YESTERDAY, MEDICATED PER EMAR. PT IND IN ROOM, CONTINENT OF URINE AND BOWEL. PT RESTED COMFORTABLY THROUGHOUT SHIFT. NO OTHER EVENTS, WILL REPORT TO ON COMING RN.
[2022-08-19] MEDS ORDERED: LIPITOR80 MG PO (10:16)
[2022-08-19] MEDS ORDERED: PRED20 PO (10:19)
--- NOTE | 2022-08-19 11:30 | NUR ---
Pt. is awake and sitting up in bed when she welcomes my visit. Pt. is pleasant and is known to the this icing coater outside the hospital. Rapport is established and a recent life review is facilitated. Matters of cyndie and belief are considered. Pt. displayed ewvidence of being encouraged, engaged and aware of her prognosis. Prayed with Pt. Pt. verbalized gratitude for the spiritual care visit.
[2022-08-19 13:11] LABS: ANTIMYELOPEROXIDASE (MPO) ABS <0.2 units (0.0-0.9); ANTIPROTEINASE 3 (PR-3) ABS <0.2 units (0.0-0.9); ATYPICAL PANCA <1:20 titer (Neg:<1:20); CYTOPLASMIC (C-ANCA) <1:20 titer (Neg:<1:20); PERINUCLEAR (P-ANCA) <1:20 titer (Neg:<1:20)
--- NOTE | 2022-08-19 17:31 | NUR ---
DISCHARGE HOME PT A&O X4. VSS. SPO2 > 92% ON RA. PT REPORTING IMPROVEMENT IN L EYE VISION. PT REPORTING MINIMAL PAIN IN L EYE THAT PT REPORTS THEN SOMETIMES TURNS INTO HEADACHE. PT REPORTING PAIN MANAGED W/ PRN PO TYLENOL. IV SOLUMEDROL GIVEN PER EMAR THIS SHIFT. DISCHARGE INSTRUCTIONS REVIEWED W/ PT. PIV REMOVED. PT TAKEN OUT BY PCT IN WHEELCHAIR W/ FAMILY & BELONGINGS @ APPROX 1730. THIS RN AGREES W/ CHANNEL SALES MANAGER DOCUMENTATION FOR THIS SHIFT
[2022-08-21 15:12] LABS: QUANTIFERON MITOGEN VALUE >10.00 IU/mL (.); QUANTIFERON TB1 AG VALUE 0.01 IU/mL (.); QUANTIFERON-TB GOLD PLUS Negative (Negative)
== END 2022-08-19 17:27 | disposition home or self-care (01) | DRG 123 ==
LOC: ER 12:02 → MEDS 20:05 → PCU 20:05
PROVIDERS: Family Medicine; Physician Assistant; Student in an Organized Health Care Education/Training Program; ADMIT Internal Medicine
DX: H46.12 Retrobulbar neuritis, left eye (principal); D68.51 Activated protein C resistance; H53.8 Other visual disturbances; H57.12 Ocular pain, left eye; E78.00 Pure hypercholesterolemia, unspecified; R73.9 Hyperglycemia, unspecified; D72.829 Elevated white blood cell count, unspecified; I12.9 Hypertensive chronic kidney disease with stage 1 through stage 4 chronic kidney disease, or unspecified chronic kidney disease; N18.2 Chronic kidney disease, stage 2 (mild); H26.9 Unspecified cataract; G47.00 Insomnia, unspecified; M81.0 Age-related osteoporosis without current pathological fracture; G43.909 Migraine, unspecified, not intractable, without status migrainosus; Z96.651 Presence of right artificial knee joint; Z88.8 Allergy status to other drugs, medicaments and biological substances; Z86.718 Personal history of other venous thrombosis and embolism; Z79.899 Other long term (current) drug therapy; Z79.2 Long term (current) use of antibiotics; Z79.82 Long term (current) use of aspirin; Z79.01 Long term (current) use of anticoagulants; Z87.19 Personal history of other diseases of the digestive system; Z98.890 Other specified postprocedural states
CPT/HCPCS: 36415; 70553; 71046; 80048; 80053; 82164; 83516; 83520; 85025; 85651; 86037; 86051; 86140; 86160; 86225; 86235; 86362; 86430; 86480; 86592; 86618; 96365-59; 99285-25; A9270; A9577; J2930; J7030

== ENCOUNTER → 2023-03-29 | Outpatient (CLI) | payer MEDICARE, OTHER ==
[~2023-03-29] MED LIST changes: +LIPITOR80 MG PO; +PRED20 PO
[2023-03-29 17:37] LABS: BASOPHILS ABSOLUTE AUTO 0.03 K/mm3 (0.00-0.23); BASOPHILS PERCENT AUTO 0 % (0-2); EOSINOPHILS ABSOLUTE AUTO 0.08 K/mm3 (0.00-0.68); EOSINOPHILS PERCENT AUTO 1 % (0-6); Hemoglobin 12.7 g/dL (11.5-16.0); IMMATURE GRAN ABSOLUTE AUTO 0.03 K/mm3 (0.00-0.10); IMMATURE GRAN PERCENT AUTO 0 % (0-1); LYMPHOCYTES PERCENT AUTO 4 % (21-46); MONOCYTES ABSOLUTE AUTO 0.44 K/mm3 (0.16-1.47); MONOCYTES PERCENT AUTO 3 % (4-13); Mean Corpuscular HGB 31.6 pg (26.0-34.0); Mean Corpuscular HGB Conc 34.3 g/dL (31.5-36.5); Mean Corpuscular Volume 92 fL (80-100); Mean Platelet Volume 11.6 fL (9.1-12.4); NEUTROPHILS ABSOLUTE AUTO 11.97 K/mm3 (1.96-9.15); NEUTROPHILS PERCENT AUTO 92 % (41-73); Platelet Count 211 K/mm3 (150-400); RDW Coefficient Variation 13.6 % (11.7-14.2); RDW Standard Deviation 46.4 fL (35.1-46.3); Red Blood Cell Count 4.02 M/mm3 (3.80-5.20); White Blood Cell Count 13.05 K/mm3 (4.00-11.30)
[2023-03-29 17:48] LABS: Bun/Creatinine Ratio 35.9 (12.0-20.0); Calcium, Blood 8.6 mg/dL (8.5-10.1); Creatinine, Blood 0.75 mg/dL (0.40-1.00)
== END ==
LOC: LAB SHORT 16:08 → LAB 16:08
PROVIDERS: Family Medicine
DX: R50.9 Fever, unspecified (principal)
CPT/HCPCS: 80048; 85025

== ENCOUNTER 2023-03-30 11:32 | Emergency (ER) | payer MEDICARE, OTHER ==
[~2023-03-30] VITALS: Ht 160 cm; Wt 57.1 kg
[2023-03-30 12:23] LABS: BASOPHILS ABSOLUTE AUTO 0.02 K/mm3 (0.00-0.23); BASOPHILS PERCENT AUTO 1 % (0-2); Hematocrit 39.6 % (33.0-51.0); Hemoglobin 13.2 g/dL (11.5-16.0); LYMPHOCYTES ABSOLUTE AUTO 0.33 K/mm3 (0.84-5.20); LYMPHOCYTES PERCENT AUTO 13 % (21-46); MONOCYTES ABSOLUTE AUTO 0.13 K/mm3 (0.16-1.47); MONOCYTES PERCENT AUTO 5 % (4-13); Mean Corpuscular HGB 31.7 pg (26.0-34.0); Mean Corpuscular HGB Conc 33.3 g/dL (31.5-36.5); Mean Corpuscular Volume 95 fL (80-100); Mean Platelet Volume 10.5 fL (9.1-12.4); Platelet Count 181 K/mm3 (150-400); RDW Coefficient Variation 14.2 % (11.7-14.2); RDW Standard Deviation 49.6 fL (35.1-46.3); Red Blood Cell Count 4.16 M/mm3 (3.80-5.20); White Blood Cell Count 2.51 K/mm3 (4.00-11.30)
[2023-03-30 12:28] LABS: EOSINOPHILS PERCENT AUTO 0 % (0-6); IMMATURE GRAN ABSOLUTE AUTO 0.02 K/mm3 (0.00-0.10); IMMATURE GRAN PERCENT AUTO 1 % (0-1); NEUTROPHILS ABSOLUTE AUTO 2.01 K/mm3 (1.96-9.15); NEUTROPHILS PERCENT AUTO 80 % (41-73)
[2023-03-30 13:02] LABS: Albumin, Blood 3.2 g/dL (3.4-5.0); Albumin/Globulin Ratio 0.9 (0.8-1.8); Bilirubin, Total 1.1 mg/dL (0.1-1.0); Bun/Creatinine Ratio 27.3 (12.0-20.0); Calcium, Blood 8.2 mg/dL (8.5-10.1); Creatinine, Blood 1.1 mg/dL (0.40-1.00); Globulin, Blood 3.6 g/dL (2.2-4.0); Potassium, Blood 3.1 mmol/L (3.5-5.5); Total Protein, Blood 6.8 g/dL (6.4-8.2)
[2023-03-30 14:19] LABS: Adenovirus F 40/41 Not Detected (NOT DETECT); Astrovirus Not Detected (NOT DETECT); Campylobacter Sp Not Detected (NOT DETECT); Cryptosporidium Not Detected (NOT DETECT); Cyclospora Cayetanensis Not Detected (NOT DETECT); E. Coli O157 Not Detected (NOT DETECT); Entamoeba Histolytica Not Detected (NOT DETECT); Enteroaggregative E. coli-EAEC Not Detected (NOT DETECT); Enteropathogenic E. coli-EPEC Not Detected (NOT DETECT); Enterotoxigenic E. coli-ETEC Not Detected (NOT DETECT); Giardia Lamblia Not Detected (NOT DETECT); Norovirus GI/GII Not Detected (NOT DETECT); Plesiomonas Shigelloides Not Detected (NOT DETECT); Rotavirus A Not Detected (NOT DETECT); Salmonella Sp Not Detected (NOT DETECT); Sapovirus Not Detected (NOT DETECT); Shiga Toxin-prod E. coli-STEC Not Detected (NOT DETECT); Shigella/Enteroin E. coli-EIEC Not Detected (NOT DETECT); Vibrio Cholerae Not Detected (NOT DETECT); Vibrio Sp Not Detected (NOT DETECT); Yersinia Enterocolitica Not Detected (NOT DETECT)
[2023-03-30 15:18] VITALS: BP 122/61
== END 2023-03-30 16:12 | disposition home or self-care (01) ==
LOC: ER 11:32
PROVIDERS: Student in an Organized Health Care Education/Training Program
DX: A04.72 Enterocolitis due to Clostridium difficile, not specified as recurrent (principal); E86.0 Dehydration; E87.6 Hypokalemia; I12.9 Hypertensive chronic kidney disease with stage 1 through stage 4 chronic kidney disease, or unspecified chronic kidney disease; N18.9 Chronic kidney disease, unspecified; Z87.19 Personal history of other diseases of the digestive system; Z79.82 Long term (current) use of aspirin; Z79.01 Long term (current) use of anticoagulants; Z79.899 Other long term (current) drug therapy; Z79.52 Long term (current) use of systemic steroids; Z88.8 Allergy status to other drugs, medicaments and biological substances
CPT/HCPCS: 80053; 83690; 85025; 87324; 87507; 96361; 96374; 99283-25; A9270; J2270; J2405; J7030

== ENCOUNTER 2023-04-06 15:33 | Inpatient (IN) | payer MEDICARE, OTHER ==
[~2023-04-06] VITALS: Ht 160 cm; Wt 57.0 kg
[2023-04-06 16:20] LABS: BASOPHILS ABSOLUTE AUTO 0.08 K/mm3 (0.00-0.23); BASOPHILS PERCENT AUTO 1 % (0-2); EOSINOPHILS ABSOLUTE AUTO 0.24 K/mm3 (0.00-0.68); EOSINOPHILS PERCENT AUTO 2 % (0-6); Hematocrit 40.5 % (33.0-51.0); IMMATURE GRAN ABSOLUTE AUTO 0.74 K/mm3 (0.00-0.10); IMMATURE GRAN PERCENT AUTO 5 % (0-1); LYMPHOCYTES ABSOLUTE AUTO 1.91 K/mm3 (0.84-5.20); LYMPHOCYTES PERCENT AUTO 13 % (21-46); MONOCYTES ABSOLUTE AUTO 0.61 K/mm3 (0.16-1.47); MONOCYTES PERCENT AUTO 4 % (4-13); Mean Corpuscular HGB Conc 34.6 g/dL (31.5-36.5); Mean Corpuscular Volume 90 fL (80-100); Mean Platelet Volume 10.2 fL (9.1-12.4); NEUTROPHILS ABSOLUTE AUTO 11.63 K/mm3 (1.96-9.15); NEUTROPHILS PERCENT AUTO 76 % (41-73); Platelet Count 333 K/mm3 (150-400); RDW Coefficient Variation 13.1 % (11.7-14.2); RDW Standard Deviation 43.2 fL (35.1-46.3); Red Blood Cell Count 4.52 M/mm3 (3.80-5.20); White Blood Cell Count 15.21 K/mm3 (4.00-11.30)
[2023-04-06 16:48] LABS: Albumin, Blood 3.4 g/dL (3.4-5.0); Albumin/Globulin Ratio 0.8 (0.8-1.8); Bilirubin, Total 1.1 mg/dL (0.1-1.0); Bun/Creatinine Ratio 10.7 (12.0-20.0); Calcium, Blood 10.2 mg/dL (8.5-10.1); Creatinine, Blood 3.08 mg/dL (0.40-1.00); Globulin, Blood 4.5 g/dL (2.2-4.0); Potassium, Blood 2.8 mmol/L (3.5-5.5); Total Protein, Blood 7.9 g/dL (6.4-8.2)
[2023-04-06 21:50] LABS: Source, Urine Clean Catch
[2023-04-06 21:55] LABS: Appearance, Urine Clear (Clear); Bilirubin, Urine Neg (Neg); Blood, Urine 2+ (Neg); Color, Urine Yellow (P-Yellow); Glucose Qualitative, Urine Neg (Neg); Ketones, Urine Neg (Neg); Leukocyte Esterase, Urine Neg (Neg); Nitrite, Urine Neg (Neg); Protein, Urine Neg (Neg); Urobilinogen, Urine NORM (Normal)
[2023-04-06 22:05] LABS: Bacteria Few /hpf; Squamous Epithelial Cells Mod /hpf (Few); Transitional Epithelial Cells Few /hpf (0-Rare); White Blood Cells, Urine 0-2 /hpf (0-5)
[2023-04-07 01:33] VITALS: BP 146/89
--- NOTE | 2023-04-07 03:15 | NUR ---
ARRIVAL TO THE UNIT. PT ARRIVED FROM THE ER TO ROOM 231 AT 0121. REPORT RECEIVED FROM ER NURSE PRIOR TO ARRIVAL. PT TRANSFERED TO THE BED WELL VIA AMBULATION. VITALS SIGNS AND WEIGHT OBTAINED. DIFICID 200MG SENT TO PHARMACY FOR VERIFICATION. 6 PILLS COUNTED IN BOTTLE. PT ORIENTED TO ROOM AND HAS CALL LIGHT IN REACH.
[2023-04-07 04:01] VITALS: BP 128/77
[2023-04-07 06:36] LABS: BASOPHILS ABSOLUTE AUTO 0.06 K/mm3 (0.00-0.23); BASOPHILS PERCENT AUTO 1 % (0-2); EOSINOPHILS ABSOLUTE AUTO 0.19 K/mm3 (0.00-0.68); EOSINOPHILS PERCENT AUTO 2 % (0-6); Hematocrit 32.3 % (33.0-51.0); IMMATURE GRAN ABSOLUTE AUTO 0.53 K/mm3 (0.00-0.10); IMMATURE GRAN PERCENT AUTO 4 % (0-1); LYMPHOCYTES ABSOLUTE AUTO 2.13 K/mm3 (0.84-5.20); LYMPHOCYTES PERCENT AUTO 17 % (21-46); MONOCYTES ABSOLUTE AUTO 0.94 K/mm3 (0.16-1.47); MONOCYTES PERCENT AUTO 7 % (4-13); Mean Corpuscular HGB 31.2 pg (26.0-34.0); Mean Corpuscular HGB Conc 34.1 g/dL (31.5-36.5); Mean Corpuscular Volume 92 fL (80-100); NEUTROPHILS ABSOLUTE AUTO 9.09 K/mm3 (1.96-9.15); NEUTROPHILS PERCENT AUTO 70 % (41-73); Platelet Count 244 K/mm3 (150-400); RDW Coefficient Variation 13.2 % (11.7-14.2); Red Blood Cell Count 3.53 M/mm3 (3.80-5.20); White Blood Cell Count 12.94 K/mm3 (4.00-11.30)
[2023-04-07 07:23] LABS: Albumin, Blood 2.4 g/dL (3.4-5.0); Albumin/Globulin Ratio 0.7 (0.8-1.8); Bilirubin, Total 0.7 mg/dL (0.1-1.0); Bun/Creatinine Ratio 11.4 (12.0-20.0); Creatinine, Blood 2.19 mg/dL (0.40-1.00); Globulin, Blood 3.3 g/dL (2.2-4.0); Potassium, Blood 3.6 mmol/L (3.5-5.5)
[2023-04-07 07:24] LABS: Calcium, Blood 8.1 mg/dL (8.5-10.1); Total Protein, Blood 5.7 g/dL (6.4-8.2)
[2023-04-07 07:36] VITALS: BP 145/77
--- NOTE | 2023-04-07 07:38 | NUR ---
SHIFT SUMMARY NOC. PT ARRIVED TO THE UNIT FROM ER AT 0121. VITAL SIGNS STABLE. PT REPORTED ABD PAIN AND SHOULDER PAIN. PT RECEIVED HOME MEDS OF MUSCLE RELAXER AND ATIVAN. PT A/O X 4. PT STARTED ON FLUIDS ORDERED. PT RESTED WITH EYES CLOSED AND CALL LIGHT IN REACH.
[2023-04-07 11:27] LABS: Adenovirus F 40/41 Not Detected (NOT DETECT); Astrovirus Not Detected (NOT DETECT); Campylobacter Sp Not Detected (NOT DETECT); Cryptosporidium Not Detected (NOT DETECT); Cyclospora Cayetanensis Not Detected (NOT DETECT); E. Coli O157 Not Detected (NOT DETECT); Entamoeba Histolytica Not Detected (NOT DETECT); Enteroaggregative E. coli-EAEC Not Detected (NOT DETECT); Enteropathogenic E. coli-EPEC Not Detected (NOT DETECT); Enterotoxigenic E. coli-ETEC Not Detected (NOT DETECT); Giardia Lamblia Not Detected (NOT DETECT); Norovirus GI/GII Not Detected (NOT DETECT); Plesiomonas Shigelloides Not Detected (NOT DETECT); Rotavirus A Not Detected (NOT DETECT); Salmonella Sp Not Detected (NOT DETECT); Sapovirus Not Detected (NOT DETECT); Shiga Toxin-prod E. coli-STEC Not Detected (NOT DETECT); Shigella/Enteroin E. coli-EIEC Not Detected (NOT DETECT); Vibrio Cholerae Not Detected (NOT DETECT); Vibrio Sp Not Detected (NOT DETECT); Yersinia Enterocolitica Not Detected (NOT DETECT)
--- NOTE | 2023-04-07 12:08 | NUR ---
Pt. is awake in bed and welcomes my visit. Pt. is pleasant and is known to this lumber salvager from the community. Facilitate a life review and update. Listen with interest, empathy and engagement. Pt. displays evidence of being very engaged and aware. Pt. verbalized some struggles she has faced at home, Considered matters of cyndie and belief. Prayed with Pt. and Pt. prayed for this lumber salvager. Pt. verbalized gratitude for the spiritual care visit.
[2023-04-07 16:49] VITALS: BP 131/70
--- NOTE | 2023-04-07 17:02 | NUR ---
SHIFT SUMMARY PT TOLERATING SMALL AMOUNTS OF FOOD. WILL GET NAUSEOUS IF SHE ATTEMPTS TO EAT FULL MEAL. CONTINUES TO HAVE LOOSE STOOLS. IND IN ROOM TO TRANSFER TO [facility]. PAINFUL DURING SHIFT WITH CRAMPY SHARP PAINS. IV FLUIDS INFUSING PER EMAR.
[2023-04-07 19:30] VITALS: BP 132/79
[2023-04-08 04:23] VITALS: BP 136/80
--- NOTE | 2023-04-08 04:24 | NUR ---
SHIFT SUMMARY NO ACUTE CHANGES THIS SHIFT. PT RESTED WELL. HAVING LESS FREQUENT LOOSE STOOLS. IVF INFUSING PER ORDERS. ENCOURAGING FLUID INTAKE. 25 MCG IV FENTANYL + TYLENOL FOR CRAMPY ABD PAIN PRN. INDEP IN ROOM. USES CALL LIGHT APPROPRIATELY.
[2023-04-08 05:29] LABS: BASOPHILS ABSOLUTE AUTO 0.05 K/mm3 (0.00-0.23); BASOPHILS PERCENT AUTO 0 % (0-2); EOSINOPHILS ABSOLUTE AUTO 0.27 K/mm3 (0.00-0.68); EOSINOPHILS PERCENT AUTO 2 % (0-6); Hematocrit 28.9 % (33.0-51.0); Hemoglobin 9.8 g/dL (11.5-16.0); IMMATURE GRAN ABSOLUTE AUTO 0.51 K/mm3 (0.00-0.10); IMMATURE GRAN PERCENT AUTO 4 % (0-1); LYMPHOCYTES ABSOLUTE AUTO 2.45 K/mm3 (0.84-5.20); LYMPHOCYTES PERCENT AUTO 21 % (21-46); MONOCYTES ABSOLUTE AUTO 0.85 K/mm3 (0.16-1.47); MONOCYTES PERCENT AUTO 7 % (4-13); Mean Corpuscular HGB 31.1 pg (26.0-34.0); Mean Corpuscular HGB Conc 33.9 g/dL (31.5-36.5); Mean Corpuscular Volume 92 fL (80-100); NEUTROPHILS ABSOLUTE AUTO 7.76 K/mm3 (1.96-9.15); NEUTROPHILS PERCENT AUTO 65 % (41-73); Platelet Count 247 K/mm3 (150-400); RDW Coefficient Variation 13.5 % (11.7-14.2); RDW Standard Deviation 45.3 fL (35.1-46.3); Red Blood Cell Count 3.15 M/mm3 (3.80-5.20); White Blood Cell Count 11.89 K/mm3 (4.00-11.30)
[2023-04-08 06:03] LABS: Albumin, Blood 2.3 g/dL (3.4-5.0); Anion Gap 5 mmol/L (6-16); Blood Urea Nitrogen 20 mg/dL (8-24); CO2, Blood 26 mmol/L (21-32); Calcium, Blood 7.4 mg/dL (8.5-10.1); Chloride, Blood 114 mmol/L (98-108); Creatinine, Blood 1.54 mg/dL (0.40-1.00); Glomerular Filtration Rate 37 (60-); Glucose, Blood 103 mg/dL (70-99); Phosphorus, Blood 3.2 mg/dL (2.5-4.9); Potassium, Blood 3.3 mmol/L (3.5-5.5); Sodium, Blood 145 mmol/L (136-145)
[2023-04-08 07:17] VITALS: BP 138/76
[2023-04-08] MEDS ORDERED: SUMA25 PO (10:10)
[2023-04-08] MEDS ORDERED: VALA500 PO (10:11)
[2023-04-08] MEDS ORDERED: ACET325 PO (11:02)
[2023-04-08] MEDS ORDERED: FLUC200 PO (11:04)
[2023-04-08] MEDS ORDERED: BANATROL PLUS1 EAC1 PO (11:06)
[2023-04-08] MEDS ORDERED: ONDA4ODT MM (11:36)
[2023-04-08] MEDS ORDERED: NYSTATIN100000 U13 PO (11:38)
[2023-04-08] MEDS ORDERED: DIFICID PO (11:40)
--- NOTE | 2023-04-08 11:55 | NUR ---
Pt. is awake in bed and dressed for discharge. Spouse is present. Facilitate a medical update and re-establish rapport. Pt. displays evidence of awareness and engagement. Assist Pt. and spouse with gathering items in the room. Pt. verbalizes gratitude for the spiritual care visits that she received.
--- NOTE | 2023-04-08 12:19 | NUR ---
DISCHARGE: PACKET PRINTED AND PT EDUCATED. MEDS FAXED TO [facility]. PT LEFT UNIT VIA WHEELCHAIR AT ABOUT 1100
[2023-04-08 19:06] LABS: HIV AB/P24 AG SCREEN Non Reactive (Non Reactive)
== END 2023-04-08 12:00 | disposition home or self-care (01) | DRG 372 ==
LOC: ER 15:33 → EDBEDREQDT 04-07 00:29 → SURS 04-07 00:30 → MEDS 04-07 00:30 → SURS 04-07 01:01
PROVIDERS: Emergency Medicine; Family Medicine; Student in an Organized Health Care Education/Training Program; ADMIT Student in an Organized Health Care Education/Training Program
DX: A04.72 Enterocolitis due to Clostridium difficile, not specified as recurrent (principal); B37.0 Candidal stomatitis; N17.9 Acute kidney failure, unspecified; D68.51 Activated protein C resistance; E87.6 Hypokalemia; N18.9 Chronic kidney disease, unspecified; E86.0 Dehydration; D63.1 Anemia in chronic kidney disease; I12.9 Hypertensive chronic kidney disease with stage 1 through stage 4 chronic kidney disease, or unspecified chronic kidney disease; R11.0 Nausea; Z79.899 Other long term (current) drug therapy; Z88.8 Allergy status to other drugs, medicaments and biological substances; Z86.718 Personal history of other venous thrombosis and embolism; Z79.82 Long term (current) use of aspirin; Z79.2 Long term (current) use of antibiotics; Z79.01 Long term (current) use of anticoagulants; Z87.19 Personal history of other diseases of the digestive system; Z98.890 Other specified postprocedural states; Z96.611 Presence of right artificial shoulder joint
CPT/HCPCS: 36415; 80053; 80069; 81001; 85025; 87389; 87507; 96361; 96365; 96375; 99284-25; A9270; J2405; J2765; J3010; J7030

== ENCOUNTER → 2025-02-03 | Outpatient (CLI) | payer MEDICARE, OTHER ==
[~2025-02-03] MED LIST changes: +ACET325 PO; +BANATROL PLUS1 EAC1 PO; +DIFICID PO; +FLUC200 PO; +NYSTATIN100000 U13 PO; +SUMA25 PO; +VALA500 PO
[2025-02-03 17:26] LABS: Influenza A/2009-H1 Not Detected (NOT DETECT); SARS-Cov-2 (COVID-19), BioFire Not Detected (NOT DETECT)
== END ==
LOC: LAB SHORT 15:31 → LAB 15:31
PROVIDERS: Nurse Practitioner Family
DX: R11.2 Nausea with vomiting, unspecified (principal); R69 Illness, unspecified
CPT/HCPCS: 0202U